=== PATIENT | female | born 1960 | race Caucasian/White ===

== ENCOUNTER 2018-06-22 17:42 | Inpatient (IN) | payer MEDICAID ==
[~2018-06-22] VITALS: Ht 152.4 cm; Wt 72.6 kg
--- NOTE | ~2018-06-22 | HEMODYNAMI ---
PATIENT:HETAL DASH MEDICAL RECORD: [id number] : 56 LOCATION:[place] [address] ADMISSION DATE: 06/22/18 Generatedon:06/23/201811:07 Patient name: HETAL DASH Patient #: [id number] SSN: : Date of study: 06/23/2018 Page: Of Hemodynamic Procedure Report Patient Data Patient Demographics Procedure consent was obtained First Name: HETAL Gender: Female Last Name: EKTA : 1960 Patient #: [id number] Age: 57 year(s) Race: Unknown Additional ID: [id number] Contact details Address: [place] [address] State: [place] City: [place] Zip code: [address] Past Medical History Allergies: No known allergies Admission Admission Data Admission Date: 06/22/2018 Admission Time: 19:19 Room #: [facility] Procedure Procedure Types Cath Procedure Diagnostic Procedure LHC LHC w/Coronaries w/Grafts Temporary Pacemaker Procedure Description Procedure Date Procedure Date: 06/23/2018 Procedure Start Time: 10:49 Procedure End Time: 11:06 Procedure Staff Name Function Jose Mccormick MD Performing Physician Dorys Laura RT Monitor Prieto Lundberg RT Scrub Dorie Valera RN Nurse Procedure Data Cath Procedure Fluoroscopy Diagnostic fluoroscopy Total fluoroscopy Time: 3.7 time: 3.7 min min Diagnostic fluoroscopy Total fluoroscopy dose: 207 dose: 207 mGy mGy Contrast Material Contrast Material Type Amount (ml) Isovue 300 57 Entry Location Entry Primary Successful Side Size Upsize Upsize Entry Closure Succes sful Closure Location (Fr) 1 (Fr) 2 (Fr) Remarks Device Remarks Femoral Left 6 Fr vein Short Femoral Left 5 Fr Exoseal artery Estimated blood loss: 10 ml Diagnostic catheters Device Type Used For End Catheter Placement MULTIPACK Pigtail 5 Fr Procedure catheter MULTIPACK JL 4.0 5Fr Procedure catheter MULTIPACK 3DRC 5Fr Procedure catheter DIAGNOSTIC AR2 MOD 5 Fr Procedure catheter ([id number]) Procedure Complications No complications Procedure Medications Medication Administration Route Dosage 0.9% NaCl I.V. 100 ml/hr Oxygen etCO2 Nasal cannula 2 l/min Lidocaine 2% added to field 20 Heparin Flush Bag added to field 2 bags (1000units/500ml NS) Versed I.V. 0.5 mg Fentanyl I.V. 25 mcg Hemodynamics Rest Heart Rate: 46 (bpm) Snapshots Pre Cath Intra NCS Post Cath Vital Signs Time Heart Resp SPO2 etCO2 NIBP Rhythm Pain Sedation Rate (ipm) (%) (mmHg) (mmHg) Status Level (bpm) 10:38:01 45 18 96 24.3 111/52(77) NSR 0 (11) 10(A) , No pain 10:42:25 47 16 97 25.7 78/35(44) NSR 0 (11) 10(A) , No pain 10:46:33 43 13 96 23.5 89/44(81) NSR 0 (11) 10(A) , No pain 10:51:57 74 12 97 19.7 110/53(96) NSR 0 (11) 10(A) , No pain 10:56:15 58 10 97 24.7 115/48(78) NSR 0 (11) 9(A) , No pain 11:00:31 70 13 98 22.7 123/64(96) NSR 0 (11) 10(A) , No pain 11:04:47 70 11 99 25 124/63(83) NSR 0 (11) 10(A) , No pain Medications Time Medication Route Dose Verified Delivered Reason Notes Eff ectiveness by by 10:37:15 0.9% NaCl I.V. 100 Jose Dorie used for ml/hr Anny Valera equipment cleaner 10:37:22 Oxygen etCO2 2 Jose Dorie used for Nasal l/min Anny Valera procedure cannula RN 10:37:27 Lidocaine 2% added 20ml Jose Garcia for local to vial Anny Mccormick MD anesthetic field 10:37:31 Heparin Flush added 2 Jose Jose used for Bag to bags Anny Mccormick MD procedure (1000units/500ml field NS) 10:52:06 Versed I.V. 0.5 Jose Dorie for mg Anny Valera sedation RN 10:52:12 Fentanyl I.V. 25 [place]ie [place] [facility] [place]ny Valera sedation hoisting engineer pile driving Log Time Note 10:10:30 Signed procedure consent form obtained from patient. 10:10:31 Diagnostic Cath status Elective 10:10:32 Time tracking: Regular hours (M-F 7:00 - 5:00) 10:10:36 Plan of Care:Hemodynamics will remain stable., Cardiac rhythm will remain stable., Comfort level will be maintained., Respiratory function will remain adequate., Patient/ family verbilizes understanding of procedure., Procedure tolerated without complication., Recovers from procedure without complications.. 10:13:14 Dorie Valera RN sent for patient. Start room use. 10:25:28 Patient received from ICU to CCL 1 Alert and oriented. Tansferred to table in Supine position. 10:25:37 Warm blankets applied, and leatha hugger turned on for patient comfort. 10:25:38 Correct patient and procedure confirmed by team. 10:25:39 ECG and BP/O2 sat monitors applied to patient. 10:36:50 Vital chart was started 10:37:15 0.9% NaCl 100 ml/hr I.V. was administered by Dorie Valera RN; used for procedure; 10:37:22 Oxygen 2 l/min etCO2 Nasal cannula was administered by Dorie Valera RN; used for procedure; 10:37:27 Lidocaine 2% 20ml vial added to field was administered by Jose Mccormick MD; for local anesthetic; 10:37:31 Heparin Flush Bag (1000units/500ml NS) 2 bags added to field was administered by Jose Mccormick MD; used for procedure; 10:39:33 Use device set Femoral Dx 10:39:35 ACIST Syringe (27540) opened to sterile field. 10:39:35 Bag Decanter (2002) opened to sterile field. 10:39:36 Medline Cath Pack ([id number]) opened to sterile field. 10:39:37 DIAGNOSTIC WIRE .035 260cm J wire (377233) opened to sterile field. 10:39:41 ACIST Hand Control (29643) opened to sterile field. 10:39:42 ACIST Manifold (47440) opened to sterile field. 10:39:44 DIAGNOSTIC Multipack 5Fr catheter set (AS1968) opened to sterile field. 10:39:45 Tegaderm 4 x 4 (1626W) opened to sterile field. 10:40:00 SHEATH 5FR Saint [place] (LNG221) opened to sterile field. 10:40:16 SHEATH 6FR [place] (ITH778) opened to sterile field. 10:40:41 Baseline sample Acquired. 10:40:57 Rhythm: 2nd degree heart block 10:40:59 Full Disclosure recording started 10:41:25 H&P Date Dictated: 06/22/2018 Within 30 days and on chart.. 10:41:27 Pre-procedure instructions explained to patient. 10:41:29 Pre-op teaching completed and patient verbalized understanding. 10:41:38 Family in waiting room. 10:42:40 5Fr J Tip Temporary Pacing Catheter ([id number]) opened to sterile field. 10:42:48 2-0 Silk 685H opened to sterile field. 10:42:49 Pt arrived to with Dobutamine 10mcg/kg/min continuous infusion upon arrival. Verbal order received from Dr. Mccormick to d/c Dobutamine drip now. 10:45:39 Patient allergic to No known allergies 10:45:42 Is patient on blood thinner?No 10:45:43 Patient diabetic? Yes. 10:45:51 INSULIN DEPENDENT 10:45:55 Previous problem with sedation/anesthesia? No ? 10:45:57 Snore? No 10:45:58 Sleep apnea? No 10:45:58 Deviated septum? No 10:45:59 Opens mouth fully? Yes 10:46:00 Sticks out tongue? Yes 10:46:06 Airway obstruction? Yes ASTHMA 10:46:08 Dentures? No ? 10:46:12 Pre procedure: left dorsailis pedis pulse 1+ Palpable, but thready & weak; easily obliterated 10:46:15 Patient pain scale 0/10 ?. 10:46:21 IV patent on arrival in right antecubital with 0.9% NaCl at O. 10:46:23 Lab results completed and on chart. 10:46:27 Left groin area was prepped with chlora-prep and draped in sterile fashion 10:46:28 Alarms reviewed by R. N. 10:46:28 Sharps counted by scrub and verified by R.N. 10:46:29 --------ALL STOP TIME OUT------ 10:46:29 Final Timeout: patient, procedure, and site verified with staff and physician. All members of the team are in agreement. 10:46:31 Left groin site verified by team. 10:46:34 Physical assessment completed. ASA score P 3 - A patient with severe systemic disease as per Jose Mccormick MD. 10:46:37 Sedation plan: IV Moderate Sedation Medication:Versed, Fentanyl 10:48:55 Zero performed for pressure channel P1 10:49:26 Procedure started. 10:49:35 Local anesthetic to left femerol artery with Lidocaine 2% by Jose Mccormick MD.INITIAL ACCESS ONLY 10:49:58 A 6 Fr Short sheath was inserted into the Left Femoral vein 10:50:14 Temporary pacer inserted 10:51:48 Temporary pacer turned on with the following settings: Rate 70, MA 5, Mode: Demand. 10:52:06 Versed 0.5 mg I.V. was administered by Dorie Valera RN; for sedation; 10:52:12 Fentanyl 25 mcg I.V. was administered by Dorie Valera RN; for sedation; 10:52:38 A 5 Fr sheath was inserted into the Left Femoral artery 10:52:56 A MULTIPACK Pigtail 5 Fr catheter was advanced over the wire and used for Procedure. 10:53:06 LV gram done using CR 10:53:10 Injector settings: Ml/sec: 10, Volume: 20, 10:53:34 EF : 50 % 10:53:36 Catheter removed. 10:53:54 A MULTIPACK JL 4.0 5Fr catheter was advanced over the wire and used for Procedure. 10:54:26 LCA angiography performed. 10:54:29 Catheter removed. 10:54:47 A MULTIPACK 3DRC 5Fr catheter was advanced over the wire and used for Procedure. 10:56:03 BUSTILLO to LAD angiography performed. 10:56:34 RCA angiography performed. 10:56:39 Catheter removed. 10:56:51 A DIAGNOSTIC AR2 MOD 5 Fr catheter ([id number]) was advanced over the wire and used for Procedure. 10:57:51 SVG to RCA angiography performed. 10:58:11 Catheter removed. 10:58:18 EXOSEAL 5Fr (EX500) opened to sterile field. 10:58:29 Sheath removed intact; hemostasis achieved with Exoseal to the Left Femoral artery. 11:00:02 Procedure ended.(Physican Out) 11:01:33 FEMORAL VEIN SHEATH SUTURED IN WITH TEMPORARY PACE MAKER 11:01:43 Fluoroscopy time 03.70 minutes. 11:01:46 Fluoroscopy dose: 207 mGy 11:01:46 Flurop Dose total: 207 11:01:49 Contrast amount:Isovue 300 57ml. 11:01:50 Sharps counted by scrub and verified by R.N. 11:01:55 Post-op/insertion site Left Femoral vein dressed using a 4 x 4 and Tegaderm. 11:02:00 Post-procedure physical assessment completed. ASA score P 2 - A patient with mild systemic disease as per Jose Mccormick MD. 11:02:05 Post procedure rhythm: sinus rhythm , paced 11:02:07 Estimated blood loss: 10 ml 11:02:08 Post procedure instruction explained to patient.Patient verbalizes understanding. 11:02:25 Procedure type changed to Cath procedure, Diagnostic procedure, LHC, LHC w/Coronaries w/Grafts, Temporary Pacemaker 11:04:48 Procedure and supply charges have been captured, reviewed, submitted and are correct. 11:04:50 Procedure Complication : No complications 11:06:47 Vital chart was stopped 11:06:47 See physician's report for complete and final results. 11:06:49 Report given to ICU. 11:06:52 Patient transfered to ICU with Bed. 11:06:57 Procedure ended. 11:06:57 Full Disclosure recording stopped 11:07:00 End room use (Document Last) 11:07:00 End room use (Document Last) Device Usage Item Name Manufacture Quantity Catalog Hospital Part Current Minimal L ot# / Number Charge Number Stock Stock Serial# Code ACIST Acist 1 13214 [id number] 229936 416831 20 Syringe Medical (77992) Systems Inc Bag Microtek 1 352360 21643 119361 5 Decanter Medical Inc. () Medline Medline 1 [id number] 765332 00524 895434 5 Cath Pack ([id number]) DIAGNOSTIC St Flash 1 612053 295504 099069 168573 30 WIRE .035 260cm J wire (214357) ACIST Hand Acist 1 05996 478418 738864 701274 5 Control Medical (66067) Systems Inc ACIST Acist 1 16545 302892 109357 270799 5 Manifold Medical (03542) Systems Inc DIAGNOSTIC Cardinal 1 BR5149 513792 50232 229922 30 Multipack Health 5Fr catheter set (TU8052) Tegaderm 4 3M 1 1626W 162365 553881 742741 5 x 4 (1626W) SHEATH 5FR Terumo 1 FAC342 743085 060016 128077 5 Saint George (FRN626) SHEATH 6FR Terumo 1 TYE789 467434 287380 967599 40 [place] George (FOF018) 5Fr J Tip Stephens 1 [id number] 761453 67457 247300 2 Temporary Lifesciences Pacing Catheter ([id number]) 2-0 Silk Ethicon 1 685H 543809 35423 370151 5 685H MULTIPACK Cardinal 1 149445 5 Pigtail 5 Health Fr catheter MULTIPACK Cardinal 1 927616 5 JL 4.0 5Fr Health catheter MULTIPACK Cardinal 1 376211 5 3DRC 5Fr Health catheter DIAGNOSTIC Cardinal 1 [id number] 735984 577353 524869 20 AR2 MOD 5 Health Fr catheter (723335J) EXOSEAL 5Fr Cardinal 1 EX500 298042 501747 271717 10 (EX500) Health Signature Audit [place] Stage Time Signature Unsigned Intra-Procedure 06/23/2018 Dorys Laura 11:07:22 AM RT(R) Signatures Monitor : Dorys Laura Signature : RT Date : Time : [place] [address] [place] [address]
--- NOTE | ~2018-06-22 | HEMODYNAMI ---
PATIENT:HETAL DASH MEDICAL RECORD: [id number] : 56 LOCATION:[place] [address] ADMISSION DATE: 06/22/18 Generatedon:06/24/201810:54 Patient name: HETAL DASH Patient #: [id number] SSN: : Date of study: 06/24/2018 Page: Of Hemodynamic Procedure Report Patient Data Patient Demographics Procedure consent was obtained First Name: HETAL Gender: Female Last Name: EKTA : 1960 Patient #: [id number] Age: 57 year(s) Race: Unknown Additional ID: [id number] Contact details Address: [place] [address] State: [place] City: [place] Zip code: [address] Past Medical History Allergies: No known allergies Admission Admission Data Admission Date: 06/22/2018 Admission Time: 19:19 Room #: [facility] Procedure Procedure Types Cath Procedure Diagnostic Procedure PPM/ICD PPM Dual Implant Procedure Description Procedure Date Procedure Date: 06/24/2018 Procedure Start Time: 9:21 Procedure End Time: 10:42 Procedure Staff Name Function Jose Mccormick MD Performing Physician Dennys Abel MD Assisting physician Zaid Caro RN Nurse Ciera Simmons RT Scrub Bert Hercules RT Monitor Brad Ahn Additional personnel Procedure Data Cath Procedure Fluoroscopy Diagnostic fluoroscopy Total fluoroscopy Time: time: 10.9 min 10.9 min Diagnostic fluoroscopy Total fluoroscopy dose: dose: 216.35 mGy 216.35 mGy Procedure Complications No complications Procedure Medications Medication Administration Route Dosage Oxygen 8 l/min Lidocaine 1% added to field 20 Ancef (1Gm/50ml NS) I.V.P.B 2 g Ancef Irrigation Topical 1 g (1gm/500ml NS) Refer to Anesthesia Notes for Sedation Medications Hemodynamics Rest Heart Rate: 58 (bpm) Snapshots Pre Cath Intra NCS Post Cath Vital Signs Time Heart Resp SPO2 etCO2 NIBP (mmHg) Rhythm Pain Sedation Rate (ipm) (%) (mmHg) Status Level (bpm) 9:00:04 70 14 97 0 177/82(129) NSR 0 (11) 10(A) , No pain 9:04:44 70 13 98 0 166/79(127) NSR 0 (11) 10(A) , No pain 9:09:29 70 11 100 0 162/77(123) NSR 0 (11) 10(A) , No pain 9:14:09 70 17 95 0 153/77(124) NSR 0 (11) 10(A) , No pain 9:18:48 70 16 95 0 135/44(98) NSR 0 (11) 10(A) , No pain 9:23:06 70 31 93 0 131/72(106) NSR 0 (11) 9(A) , No pain 9:27:38 49 36 89 0 122/55(92) NSR 0 (11) 9(A) , No pain 9:33:43 85 13 90 0 113/55(84) NSR 0 () 9(A) , No pain 9:38:01 49 28 92 0 95/59(83) NSR 0 () 9(A) , No pain 9:42:17 49 19 91 0 77/60(73) NSR 0 (11) 9(A) , No pain 9:47:41 49 27 92 0 94/45(75) NSR 0 () 9(A) , No pain 9:52:58 53 22 90 0 133/60(95) NSR 0 (11) 9(A) , No pain 9:57:20 99 38 92 0 117/74(91) NSR 0 () 9(A) , No pain 10:01:46 49 25 91 0 119/55(83) NSR 0 (11) 9(A) , No pain 10:06:13 49 23 91 0 117/46(88) NSR 0 (11) 9(A) , No pain 10:10:35 80 22 92 0 111/58(80) NSR 0 (11) 9(A) , No pain 10:14:53 104 30 92 0 122/69(91) NSR 0 (11) 9(A) , No pain 10:19:17 103 15 93 0 126/63(86) NSR 0 (11) 9(A) , No pain 10:23:29 102 16 93 0 80/66(72) NSR 0 (11) 9(A) , No pain 10:34:08 84 17 96 0 147/57(100) NSR 0 (11) 10(A) , No pain 10:38:38 93 25 0 144/70(105) NSR 0 (11) 10(A) , No pain 10:43:11 91 17 0 147/73(106) NSR 0 (11) 10(A) , No pain Medications Time Medication Route Dose Verified Delivered Reason Notes Effec tiveness by by 9:02:06 Oxygen simple 8 Dennys Zaid used for per mask l/min Poonam Caro RN procedure anesthesia 9:08:56 Ancef I.V.P.B 2 g Dennys Mar Per (1Gm/50ml Poonam Caro RN physician NS) 9:14:46 Lidocaine added 20ml Dennys Noyola for local 1% to vial Poonam Abel MD anesthetic field 9:15:14 Ancef Topical 1 g Dennys Mar used for Irrigation Poonam Caro RN procedure (1gm/500ml NS) 9:15:22 Refer to Dennyssonia Venegasie Nixon Anesthesia Poonam Caro RN Olivares Notes for Sedation Medications Procedure Log Time Note 8:20:10 Diagnostic Cath Status : Elective 8:20:46 Bert Hercules RT(R) sent for patient. Start room use. 8:20:48 Time tracking: Regular hours (M-F 7:00 - 5:00) 8:20:51 Plan of Care:Hemodynamics will remain stable., Cardiac rhythm will remain stable., Comfort level will be maintained., Respiratory function will remain adequate., Patient/ family verbilizes understanding of procedure., Procedure tolerated without complication., Recovers from procedure without complications.. 8:34:10 Cautery Tip Training Intern opened to sterile field. 8:34:12 Cautery Pushbutton Pencil opened to sterile field. 8:34:13 Mepilex Dressing (210637) opened to sterile field. 8:34:15 Immobilizer Sling Medium opened to sterile field. 8:35:02 Medtronic Advisa MRI PPM Dual Generator A2DR01 opened to sterile field. 8:35:03 Medtronic 5076-45 PPM Lead opened to sterile field. 8:35:03 Medtronic 5076-52 PPM Lead opened to sterile field. 8:35:57 Medtronic financial representative Tera Manzanares present for procedure. 8:58:24 Patient received from ICU to CCL 3 Alert and oriented. Tansferred to table in Supine position. 8:58:25 Warm blankets applied, and leatha hugger turned on for patient comfort. 8:58:25 Correct patient and procedure confirmed by team. 8:58:26 Signed procedure consent form obtained from patient. 8:58:27 ECG and BP/O2 sat monitors applied to patient. 8:58:28 Vital chart was started 8:58:30 Baseline sample Acquired. 9:01:21 Rhythm: sinus rhythm 9:01:23 Full Disclosure recording started 9:01:28 H&P Date Dictated: 06/24/2018 Within 30 days and on chart.. 9:01:29 Pre-procedure instructions explained to patient. 9:01:30 Pre-op teaching completed and patient verbalized understanding. 9:01:36 Family in waiting room. 9:01:38 Patient NPO since Midnight. 9:01:43 Patient allergic to No known allergies 9:01:46 Is the patient allergic to Iodine/contrast media? No. 9:01:50 Was the patient premedicated? No 9:02:06 Oxygen 8 l/min simple mask was administered by Zaid Caro RN; used for procedure; per anesthesia 9:03:34 Is patient on blood thinner?No 9:03:36 Patient diabetic? Yes. 9:03:38 If diabetic: On Metformin? No 9:03:39 ----Pre-sedation anethsthesia assessment.---- 9:03:41 Previous problem with sedation/anesthesia? No ? 9:03:43 Snore? No 9:03:44 Sleep apnea? No 9:03:46 Deviated septum? No 9:03:47 Opens mouth fully? Yes 9:03:48 Sticks out tongue? Yes 9:03:54 Airway obstruction? Yes ASTHMA' 9:03:59 Dentures? No ? 9:04:02 Pre procedure: right dorsailis pedis pulse 1+ Palpable, but thready & weak; easily obliterated 9:04:07 Patient pain scale 0/10 ?. 9:04:49 IV patent on arrival in right antecubital with 0.9% NaCl at 10ml/hr. 9::56 Lab results completed and on chart. 9:05:06 Left chest area was prepped with chlora-prep and draped in sterile fashion 9:05:08 Alarms reviewed by R. N. 9:05:08 Sharps counted by scrub and verified by R.N. 9::56 Ancef (1Gm/50ml NS) 2 g I.V.P.B was administered by Zaid Caro RN; Per physician; 9::29 Grounding pad site free from injury. 9::32 Grounding pad site Left thigh. 9::56 Physician paged 9::57 Physician arrived 9:14:46 Lidocaine 1% 20ml vial added to field was administered by Dennys Abel MD; for local anesthetic; 9:15: Ancef Irrigation (1gm/500ml NS) 1 g Topical was administered by Zaid Caro RN; used for procedure; 9:15:22 Refer to Anesthesia Notes for Sedation Medications was administered by Zaid Caro RN; ; Nixon Olivares 9::57 --------ALL STOP TIME OUT------ 9:17:58 Final Timeout: patient, procedure, and site verified with staff and physician. All members of the team are in agreement. 9:18:00 Left chest site verified by team. 9:18:04 Physical assessment completed. ASA score P 4 - A patient with severe systemic disease that is a constant threat to life as per Dennys Abel MD. 9:18:07 Physical assessment completed. ASA score P 2 - A patient with mild systemic disease as per Dennys Abel MD. 9:18:13 Sedation plan: TIVA Medication:Propofol 9:19:33 2-0 Vicryl Plus AQE725 opened to sterile field. 9:19:34 3-0 Vicryl Multipack [id number] opened to sterile field. 9:19:34 4-0 Monocryl Y426 opened to sterile field. 9:19:35 4-0 Monocryl Y426 opened to sterile field. 9:20:23 Procedure started. 9:21:37 Lidocaine 1% w/epi was administered to left subclavicular area by Dennys Abel MD . 9:28:39 Incision made to left subclavicular area. 9:29:00 PEELAWAY 7FR Safe Sheath (SU7) opened to sterile field. 9:29:07 Generator pocket made/opened. 9:33:02 TEMP PACER TAKEN TO 40BPM PER POONAM 9:37:57 Access obtained with 9Fr micropunture. 9:39:46 PEELAWAY 9FR Safe Sheath (SU9) opened to sterile field. 9:40:20 Left subclavian vein accessed with 9Fr Peel Away Sheath. 9:41:32 Ventricular lead inserted and advanced. 9:46:14 Atrial lead inserted and advanced. 9:54:12 Ventricular lead positioned. 10:02:11 Atrial lead positioned. 10:02:15 Ventricular lead tested. 10:02:19 Atrial lead tested. 10:10:18 TEMP PACER REMOVED FROM THE HEART AND TURNED OFF. SHEATH WILL REMAIN IN LFV 10:13:18 Peel-a-way sheath was split and removed. 10:13:55 Ventricular lead attachment was completed with 2-0 vicryl. 10:14:01 Atrial lead attachment was completed with 2-0 vicryl. 10:14:09 PPM Dual was attached to lead(s) and inserted into pocket. 10:14:28 Generator was sutured in place with 3-0 vicryl. 10:14:40 Device pocket was irrigated with Ancef. 10:16:39 Parameters-- Generator: Mode: BIPOLAR. Lower Rate: 60bpm. Upper Rate: 120bpm. 10:17:13 Parameters--Ventricular P/R Wave: 8.7mV. Current: 0.4mA; Threshold: 1.4V; Impedence: 1543OHMS. 10:17:36 Parameters--Atrial P/R Wave: 1.2mV. Current: 0.4mA; Threshold: 1.1V; Impedence: 564OHMS. 10:18:03 Subcutaneous closure was completed with 3-0 vicryl plus. 10:22:33 Skin closure was completed with 5-0 monocryl. 10:26:34 Mepilex Dressing (770060) opened to sterile field. 10:38:11 SHEATH SUTURED BACK TO LFV 10:38:23 Procedure ended.(Physican Out) 10:38:55 Fluoroscopy time 10.90 minutes. 10:39:02 Flurop Dose total: 216.35 10:39:02 Fluoroscopy dose: 216.35 mGy 10:39:04 Sharps counted by scrub and verified by R.N. 10:39:05 Insertion/operative site no bleeding no hematoma. 10:39:12 Post-op/insertion site Left Chest area dressed using a Mepilex dressing. 10:39:31 Post Chest area:stable 10:41:48 Post procedure rhythm: paced 10:41:50 Post procedure instruction explained to patient.Patient verbalizes understanding. 10:41:53 Procedure and supply charges have been captured, reviewed, submitted and are correct. 10:42:18 Procedure Complication : No complications 10:42:22 Vital chart was stopped 10:42:23 See physician's report for complete and final results. 10:42:30 Report given to ICU. 10:42:45 Patient transfered to ICU with Bed. 10:42:49 Procedure ended. 10:42:49 Full Disclosure recording stopped 10:42:51 End room use (Document Last) Device Usage Item Name Manufacture Quantity Catalog Hospital Part Current Minimal Lo t# / Number Charge Number Stock Stock Serial# Code Cautery Tip Microtek 1 [id number] 737204 860082 414095 5 Training [employer]oghs Inc. Cautery Microtek 1 [id number] 975038 88846 801911 5 Pushbutton Medical Inc. Pencil Mepilex Cardinal 2 996147 296122 017054 471919 5 [facility] Health (212932) Immobilizer Cardinal 1 08-33125 265891 785040 785429 5 [facility] Health Medium Medtronic Medtronic 1 A2DR01 444077 895535 5 PV [id number] Advisa MRI EX P: 10/20/20 PPM Dual Generator A2DR01 Medtronic Medtronic 1 5076-45 223031 144140 5 PJ [id number] 5076-45 PPM EX P:02/23/20 Lead Medtronic Medtronic 1 5076-52 055644 560607 5 PJ [id number] 5076-52 PPM EX P: 20 Lead 2-0 Vicryl Ethicon 1 PEI401 583180 738760 290763 5 Plus ANR494 3-0 Vicryl Ethicon 1 [id number] 255865 437209 993322 5 Multipack [id number] 4-0 Ethicon 2 Y426 755301 106977 5 Monocryl Y426 PEELAWAY Microtek 1 SU7 413795 200252 295302 10 7FR Safe Medical Inc. Sheath (SU7) PEELAWAY Microtek 1 SU9 594179 426788 994767 5 9FR Safe Medical Inc. Sheath (SU9) Signature Audit [place] Stage Time Signature Unsigned Intra-Procedure 06/24/2018 Bert MARINO(Mila) 10:54:09 AM Signatures Monitor : Bert Hercules RT Signature : Date : Time : [address] [address]
[2018-06-22] MEDS ORDERED: BAYER CHEWABLE81 MG PO (17:55)
[2018-06-22] MEDS ORDERED: LOPRESSOR25 MG PO (17:55)
[2018-06-22] MEDS ORDERED: FENOFIBRATE54 MG PO (17:55)
[2018-06-22] MEDS ORDERED: CLARITIN 10 MG10 MG PO (17:55)
[2018-06-22] MEDS ORDERED: GLIMEPIRIDE4 MG PO (17:55)
[2018-06-22] MEDS ORDERED: LEVEMIR IN100 UNITS/ SC (17:56)
[2018-06-22] MEDS ORDERED: ZANAFLEX4 MG PO (17:56)
[2018-06-22] MEDS ORDERED: FUROSEMIDE20 MG PO (17:57)
[2018-06-22 19:03] VITALS: BP 173/60
[2018-06-22 20:22] VITALS: BP 93/67
[2018-06-22 20:28] LABS: BASOPHILS 0.3 % (0-2); EOSINOPHILS 4.7 % (0-7); HEMATOCRIT 40.7 % (36.0-48.0); HEMOGLOBIN 12.7 g/dL (12-16); LYMPHOCYTES 29.9 % (15-50); MCH 29.7 pg (26.0-34.0); MCHC 31.2 g/dL (31.0-37.0); MCV 95.1 fL (80.0-100.0); MEAN PLATELET VOLUME 10.1 fL (7.4-10.4); MONOCYTES 6.7 % (2-11); NEUTROPHILS 58.4 % (40-80); PLATELET COUNT 239 10x3/uL (130-400); RBC 4.28 10x6/uL (4.00-5.40); RDW 15.4 % (11.5-14.5)
[2018-06-22 20:31] VITALS: BP 133/74
[2018-06-22 20:45] LABS: ALBUMIN 3.2 g/dL (3.4-5.0); ALKALINE PHOSPHATASE 49 U/L (46-116); ALT (SGPT) 36 U/L (10-68); CALC OSMOLALITY 295 mosm/kg (275-300); CALCIUM 9.3 mg/dL (8.5-10.1); CARBON DIOXIDE 26.5 mmol/L (21.0-32.0); CHLORIDE - SERUM 110 mmol/L (98-107); CREATININE - SERUM 1.3 mg/dL (0.6-1.3); GLUCOSE 88 mg/dL (74-106); POTASSIUM - SERUM 4.8 mmol/L (3.5-5.1); PROTEIN - SERUM 6.6 g/dL (6.4-8.2); SODIUM 146 mmol/L (136-145); UREA NITROGEN 30 mg/dL (7-18); eGFR NON AFRICAN AMERICAN 44 mL/min (90-120)
[2018-06-22 20:48] LABS: INR 1.06 (0.85-1.17); PROTIME 13.3 SECONDS (11.6-15.0)
[2018-06-22 20:57] LABS: CKMB 6.4 U/L (0.0-3.6); CREATINE KINASE 111 UL (21-215); MAGNESIUM - SERUM 2.6 mg/dL (1.8-2.4); TROPONIN-I 0.033 ng/mL (0.000-0.060)
[2018-06-22 21:30] VITALS: BP 133/74
[2018-06-22 22:20] LABS: APPEARANCE CLEAR (CLEAR); COLOR YELLOW (YELLOW); GLUCOSE NEGATIVE (NEGATIVE); KETONE NEGATIVE (NEGATIVE); NITRITE NEGATIVE (NEGATIVE); PROTEIN NEGATIVE (NEGATIVE)
[2018-06-22 22:21] LABS: BILIRUBIN NEGATIVE (NEGATIVE); UROBILINOGEN NORMAL (NORMAL)
[2018-06-22 22:24] LABS: UDS - AMPHET NEGATIVE QUAL (NEGATIVE); UDS - BARB NEGATIVE QUAL (NEGATIVE); UDS - BENZO NEGATIVE QUAL (NEGATIVE); UDS - COCAINE NEGATIVE QUAL (NEGATIVE); UDS - OPIATE NEGATIVE QUAL (NEGATIVE); UDS - PCP NEGATIVE QUAL (NEGATIVE); UDS - THC NEGATIVE QUAL (NEGATIVE)
[2018-06-22 22:31] VITALS: BP 173/55
[2018-06-22 23:00] VITALS: BP 152/61
--- NOTE | 2018-06-22 23:17 | NUR ---
ICU ADVISED THAT THE BED THE PATIENT WAS GOING TO COME TO WAS FILLED BY AN EMERGENCY PATIENT ON THE FLOOR AND THEY WOULD BE GETTING ANOTHER BED FOR THE PATIENT.
[2018-06-22 23:18] LABS: T4 THYROXIN - FREE 1.33 ng/dL (0.76-1.46); THYROID STIMULATING HORMONE 2.66 uIU/mL (0.36-3.74)
[2018-06-23] VITALS (29 sets, daily range): BP systolic 58–167; BP diastolic 11–96; Ht 152.4 cm; Wt 72.6 kg
--- NOTE | 2018-06-23 00:05 | NUR ---
PT RECIEVED FROM ED VIA STRETCHER. TRANSFERRED TO ICU BED 2312. MONITOR EQUIP ESTABLISHED. HR IN THE MID 30'S. 3RD DEGREE HEART BLOCK PER CM. PT IS VERY CONFUSED AND LETHARGIC. AT BEDSIDE AND ABLE TO ANSWER QUESTIONS FOR ADMISSION. HE STATES THAT HIS HAS HAD A HR IN THE 30'S SINCE BEFORE SAMANTHA BUT SHE BECAME VERY CONFUSED YESTERDAY AND THAT WAS WHY SHE WAS TAKEN TO THE ER.
--- NOTE | 2018-06-23 02:00 | NUR ---
PT HAS BECAME MORE LETHARGIC AND IS BECOMING CYANOTIC. PT WAS HYPERTENSIVE BUT IS NOW HYPOTENSIVE. REMAINS IN 3RD DEGREE HEART BLOCK. TRANSCUTANEUS PACING STARTED AT 60/MIN. PT IMMEDIATELY STARTING TO IMPROVE SKIN COLOR AND MENTATION. MONITORING CLOSELY. IS GOING TO WAITING ROOM.
[2018-06-23 03:25] LABS: BASOPHILS 0.2 % (0-2); EOSINOPHILS 4.3 % (0-7); HEMATOCRIT 39.9 % (36.0-48.0); HEMOGLOBIN 12.5 g/dL (12-16); IMMATURE GRANULOCYTES 0.2 % (0-5); LYMPHOCYTES 29.8 % (15-50); MCH 29.8 pg (26.0-34.0); MCHC 31.3 g/dL (31.0-37.0); MCV 95.2 fL (80.0-100.0); MEAN PLATELET VOLUME 9.8 fL (7.4-10.4); MONOCYTES 5.7 % (2-11); NEUTROPHILS 59.8 % (40-80); PLATELET COUNT 248 10x3/uL (130-400); RBC 4.19 10x6/uL (4.00-5.40); RDW 15.3 % (11.5-14.5)
[2018-06-23 03:46] LABS: ALBUMIN 3.1 g/dL (3.4-5.0); ALKALINE PHOSPHATASE 42 U/L (46-116); ALT (SGPT) 44 U/L (10-68); BILIRUBIN - TOTAL 0.51 mg/dL (0.2-1.3); CALC OSMOLALITY 297 mosm/kg (275-300); CALCIUM 8.9 mg/dL (8.5-10.1); CARBON DIOXIDE 31.4 mmol/L (21.0-32.0); CHLORIDE - SERUM 112 mmol/L (98-107); CKMB 6.1 U/L (0.0-3.6); CREATINE KINASE 145 UL (21-215); CREATININE - SERUM 1.3 mg/dL (0.6-1.3); GLUCOSE 117 mg/dL (74-106); PROTEIN - SERUM 6.3 g/dL (6.4-8.2); SODIUM 147 mmol/L (136-145); TROPONIN-I 0.036 ng/mL (0.000-0.060); UREA NITROGEN 27 mg/dL (7-18); eGFR NON AFRICAN AMERICAN 44 mL/min (90-120)
--- NOTE | 2018-06-23 04:00 | NUR ---
PT IS TOLERATING PACING WELL. BP HAS STABILIZED. SHE IS MORE ALERT WHEN AWAKENED AND IS ABLE TO COMMUNICATE MORE EFFECTIVELY.
--- NOTE | 2018-06-23 06:00 | NUR ---
DR SENIOR GIVEN AN UPDATE ON PT CONDITION. NEW ORDER RECIEVED TO START DOBUTREX AT 10MCG/KG/MIN AND RUN IT FOR 15 MIN AND THEN TURN PM OFF.
--- NOTE | 2018-06-23 07:00 | NUR ---
DOBUTAMINE INFUSING AT 10MCG/KG/MIN. PM IS OFF. PT IS IN 3RD DEGREE BLOCK PER CM. BP STABLE AT THIS TIME.
[2018-06-23 09:13] LABS: CKMB 5.3 U/L (0.0-3.6); CREATINE KINASE 80 UL (21-215); TROPONIN-I 0.034 ng/mL (0.000-0.060)
--- NOTE | 2018-06-23 11:22 | NUR ---
0800 REPORT RECIEVED AND ASSESMENT IS COMPLETE SEE FLOW SHEET FOR FINDINGS.. IS AT THE BEDSIDE.. PT IV FLUID IS DOBUTREX AT 10 MCG TRMPORARY EXTERNAL PACEMAKER IS TURNED OFF AT THIS TIME STILL ATTACHED TO THE PATIENT.. HR IS 47 PT IS APPROPRIATE IN RESPONSES BUT SEEMS SLUGGISH AND SLOW.. STATES SHE HAS MUSCULAR DYSTROPHY... 0900 DR SENIOR CALLED AND UPDATE IS GIVEN..
--- NOTE | 2018-06-23 13:29 | OP ---
PATIENT NAME: HETAL DASH MEDICAL RECORD: [id number] :56 LOCATION:.[facility] D.2312 ADMISSION DATE:06/22/18 SURGEON: SAURAV SENIOR MD DATE OF OPERATION: 06/23/2018 DATE OF SERVICE: 06/23/2018 PROCEDURES: 1. Temporary pacemaker placement. 2. Left heart catheterization. 3. Selective coronary angiography. 4. Vein graft angiography. 5. BUSTILLO angiography. 6. Left ventriculogram. INDICATION: Third-degree heart block, bradycardia, coronary artery disease, previous coronary artery bypass graft surgery. DESCRIPTION OF PROCEDURE: After informed consent was obtained and after a detailed description of risks, benefits as well as alternative therapies, the patient elected to proceed with angiogram and heart catheterization. The left femoral area was prepped and draped in normal sterile fashion. Left femoral artery was cannulated via modified Seldinger technique with placement of 5-Montenegrin sheath. Left femoral vein cannulated via modified Seldinger technique with placement of 6-Montenegrin sheath. Temporary pacemaker was advanced into the RV apex. Pacing was undertaken. FINDINGS: Left ventriculogram was performed in standard 30-degree CR view, reveals preserved cardiac wall motion, ejection fraction 50% to 55%. SELECTIVE CORONARY ANGIOGRAPHY: 1. Left main is with no significant angiographic disease. 2. Left anterior descending is totally occluded. 3. Left circumflex has moderate irregularities, but no flow-limiting stenosis. 4. Right coronary is totally occluded. 5. BUSTILLO to the LAD is widely patent. Distal LAD is widely patent. 6. Vein graft to the right coronary is widely patent. Distal right coronary is widely patent. OVERALL IMPRESSION: Wide patency of the left internal mammary artery to the left anterior descending, vein graft to the right coronary artery and cahto circumflex, third-degree heart block, this is not secondary to ischemia. This was resolved with temporary pacing. Evaluate for permanent pacemaker. TRANSINT:[id number] Voice Confirmation ID: [id number] DOCUMENT ID: [id number] SAURAV SENIOR MD at 1329 CC: [id number] DICTATION DATE: 06/23/18 1105 CENTRIFUGE OPERATOR: 06/23/18 1118 [place] [address]
--- NOTE | 2018-06-23 14:08 | NUR ---
0900 DR SENIOR STATED CONTINUE DOBUTREX DRIP AT 10 HE WOULD BE IN UNIT SOON.. AND HE WOULD PUT IN ORDER FOR PACEMAKER [address] LEVIN AND INFORMED OF PACEMAKER ORDER.. 0930 EXTERNAL PACEMAKER ON RATE OF 60 MA OF 10 DUE TO PT LETHARGY , JULIO VP ANCILLARY FOR CARDIOLOGY HERE AND ASSESED PATIENT 0945 DR SENIOR CALLED AND ORDER RECIEVED FOR CONSENTS FOR PATIENT TO BE SENT TO NETWORK ENGINEER ADMINISTRATOR FOR CARDIAC CATH AND TEMPORARY PACEMAKER PLACEMENT.. 1000 PERMITS SIGNED BY MJ 1020 PT TRANSPORTED TO THE NETWORK ENGINEER ADMINISTRATOR VIA BED.. 1105 REPORT RECIEVED FROM NETWORK ENGINEER ADMINISTRATOR .. CATH CLEAN AND TEMP PACER PLACED INTO LEFT GROIN, VENTICULAR PACED MA 5 , PERMNANT PACEMAKER TO BE PLACED TOMORROW, FAMILY UPDATED.. 1130 PT RETURNED TO ICU VIA BED , EASILY ROUSED, DOBUTREX OFF TEMP PACEMAKER IN LEFT GROIN DRESSING CDI RATE 70 VMA 5, PEDAL PULES CHECK WITH DOPPLER... 1145 FSBS DONE 170 AND 2 UNITS INSULIN COVER.. AT BEDSIDE 1200 PT IS SLEEPING AND FAMILY AT THE BEDSIDE.. 1230 DR LEVIN IN TO SEE PT SPOKE WITH PT AND FAMILY.. 1345 ECHO CARDIOGRAM DONE.. 1400 PT REMAINS SLEEPING WITHOUT C/O PULSES ARE WITH DOPPLER
[2018-06-23 14:12] LABS: ALKALINE PHOSPHATASE 42 U/L (46-116); ALT (SGPT) 41 U/L (10-68); BILIRUBIN - TOTAL 0.47 mg/dL (0.2-1.3); CALC OSMOLALITY 300 mosm/kg (275-300); CALCIUM 8.7 mg/dL (8.5-10.1); CARBON DIOXIDE 26.5 mmol/L (21.0-32.0); CHLORIDE - SERUM 110 mmol/L (98-107); CREATININE - SERUM 1.3 mg/dL (0.6-1.3); GLUCOSE 154 mg/dL (74-106); POTASSIUM - SERUM 5.6 mmol/L (3.5-5.1); PROTEIN - SERUM 5.6 g/dL (6.4-8.2); SODIUM 147 mmol/L (136-145); UREA NITROGEN 29 mg/dL (7-18); eGFR NON AFRICAN AMERICAN 44 mL/min (90-120)
[2018-06-23 14:28] LABS: CKMB 5.7 U/L (0.0-3.6); CREATINE KINASE 91 UL (21-215)
[2018-06-23 14:33] LABS: TROPONIN-I 0.323 ng/mL (0.000-0.060)
--- NOTE | 2018-06-23 15:46 | MORECARE ---
CASE MANAGEMENT DISCHARGE SUMMARY PATIENT: HETAL DASH UNIT: [id number] ADM DATE: 06/22/18 AGE: 57 : 56 SEX: F ROOM/BED: D.2312 AUTHOR: TEMITOPE MALIN PHYSICIAN: REFERRING PHYSICIAN: BANDAR ENRIQUEZ MD DATE OF SERVICE: 06/23/18 Discharge Plan Patient Name: HETAL DASH Facility: [facility]:[place] : 1960 Planned Disposition: Anticipated Discharge Date: Discharge Date: Expected LOS: Initial Reviewer: [email or web address] Initial Review Date: 06/22/2018 Generated: 06/23/18 4:46 pm Comments DCP- Discharge Planning Updated by [email or web address]: Love Mcgarry on 06/23/18 2:[address] CM attempted to meet with patient for intake interview but patient is currently very drowsy from procedure. CM will come back at a later time. CM will continue to follow and assist as needed with discharge planning / needs. Patient Name: HETAL DASH Page [phone] at 1546 All edits/amendments must be made on the electronic document DICTATION DATE: 06/23/181544 ELECTRIC DETECTOR OPERATOR: JOSE 06/23/181544 RPT#: [id number] DC DATE: STATUS: ADM IN [facility] [address] [place] [address] END OF REPORT
--- NOTE | 2018-06-23 18:46 | NUR ---
1600 FAMILT IN TO SEE PT.. UPDATE IS GIVEN PT IS WITHOUT C/O AT THIS TIME.. 1730 LAB IN TO DRAW UNABLE TO OBTAIN WILL SEND ANOTHER PHLEBO 1800 AT BEDSIDE.. UPDATE GIVEN AND PERMIT SIGND FOR PERM PACER INSERTION IN AM
[2018-06-23 19:21] LABS: HEMATOCRIT 38.9 % (36.0-48.0); HEMOGLOBIN 11.9 g/dL (12-16); MCH 29.5 pg (26.0-34.0); MCHC 30.6 g/dL (31.0-37.0); MCV 96.5 fL (80.0-100.0); RBC 4.03 10x6/uL (4.00-5.40); RDW 15.4 % (11.5-14.5); WBC 4.9 10x3/uL (4.8-10.8)
[2018-06-23 19:39] LABS: APTT 26.4 SECONDS (22.8-39.4); INR 1.08 (0.85-1.17); PROTIME 13.5 SECONDS (11.6-15.0)
[2018-06-24] VITALS (23 sets, daily range): BP systolic 111–158; BP diastolic 73–104
[2018-06-24 04:37] LABS: ANION GAP 11.2 mmol/L (8-16); CALCIUM 8.6 mg/dL (8.5-10.1); CARBON DIOXIDE 28.3 mmol/L (21.0-32.0); CREATININE - SERUM 1.2 mg/dL (0.6-1.3)
[2018-06-24 04:42] LABS: POTASSIUM - SERUM 4.5 mmol/L (3.5-5.1)
--- NOTE | 2018-06-24 08:26 | NUR ---
0800 AM ASSESMENT IS DONE.. SEE FLOW SHEET FOR FINDINGS.. PT IS AAWAKE AND ALERT AT THE BEDSIDE.. 0815 COMPLETE BATH WITH CHLORAHEXADINE GIVEN AND CLEAN LINENS TO BED.. 0825 ANESTHESIA HERE SPEAKING WITH PT AND FAMILY.. 0830 [facility] HERE TO TRANSPORT PT TO [facility] FOR PERM. PACEMAKER
--- NOTE | 2018-06-24 08:48 | NUR ---
0845 TRANSPORTED TO RUBBER STAMP MAKER VIA BED PER CVATH LAB STAFF.. PRE OP MEDS GIVEN ORDERED
--- NOTE | 2018-06-24 11:07 | NUR ---
PT BACK FROM TANNING WHEEL OPERATOR, PM TO LEFT UPPER CHEST, ARM IN SLING, DRSG CDI, PT LETHARGIC AT THIS TIME, AROUSES TO VOICE, ALL PPP, VSS, WILL CON'T TO MONITOR
--- NOTE | 2018-06-24 11:11 | NUR ---
RAD AT BEDSIDE, CXR COMPLETE, FAMILY ALSO AT BEDSIDE, UPDATE GIVEN
--- NOTE | 2018-06-24 11:50 | NUR ---
WAS DIRECECTED BY DR LINDSEY NURSE ELENO LAFLEUR TO DO A CXR NOW AND THEN REPEAT AN UPRIGHT CXR IN 4 HOURS.
--- NOTE | 2018-06-24 13:56 | NUR ---
1400 PT REMAINS SLEEPING AND LETHARGIC SINCE RETURNING TO ROOM FROM PROCEDURE.. AT BEDSIDE AND UPDATE RE PLAN OF CARE GIVEN
--- NOTE | 2018-06-24 14:40 | MORECARE ---
CASE MANAGEMENT DISCHARGE SUMMARY PATIENT: HETAL DASH UNIT: [id number] ADM DATE: 06/22/18 AGE: 57 : 56 SEX: F ROOM/BED: D.2312 AUTHOR: TEMITOPE MALIN PHYSICIAN: REFERRING PHYSICIAN: BANDAR ENRIQUEZ MD DATE OF SERVICE: 06/24/18 Discharge Plan Patient Name: HETAL DASH Facility: [facility]:[place] : 1960 Planned Disposition: Anticipated Discharge Date: Discharge Date: Expected LOS: Initial Reviewer: [email or web address] Initial Review Date: 06/22/2018 Generated: 06/24/18 3:40 pm Comments DCP- Discharge Planning Updated by [email or web address]: Love Mcgarry on 06/23/18 2:[address] CM attempted to meet with patient for intake interview but patient is currently very drowsy from procedure. CM will come back at a later time. CM will continue to follow and assist as needed with discharge planning / needs. Last DP export: 06/23/18 2:46 p Patient Name: HETAL DASH Page [phone] at 1440 All edits/amendments must be made on the electronic document DICTATION DATE: 06/24/18 144 NATIONAL ACCOUNTS SALES: JOSE 06/24/18 1440 RPT#: [id number] DC DATE: STATUS: ADM IN [facility] [address] [place] [address] END OF REPORT
--- NOTE | 2018-06-24 14:51 | MORECARE ---
CASE MANAGEMENT DISCHARGE SUMMARY PATIENT: HETAL DASH UNIT: [id number] ADM DATE: 06/22/18 AGE: 57 : 56 SEX: F ROOM/BED: D.2312 AUTHOR: TEMITOPE MALIN PHYSICIAN: REFERRING PHYSICIAN: BANDAR ENRIQUEZ MD DATE OF SERVICE: 06/24/18 Discharge Plan Patient Name: HETAL DASH Facility: [facility] : 1960 Planned Disposition: Anticipated Discharge Date: Discharge Date: Expected LOS: Initial Reviewer: [email or web address] Initial Review Date: 06/22/2018 Generated: 06/24/18 3:51 pm Comments DCP- Discharge Planning Updated by [email or web address]: Love Mcgarry on 06/23/18 2:[address] CM attempted to meet with patient for intake interview but patient is currently very drowsy from procedure. CM will come back at a later time. CM will continue to follow and assist as needed with discharge planning / needs. DCPIA - Discharge Planning Initial Assessment Updated by [email or web address]: Love Mcgarry on 06/24/18 2:44 pm * Is the patient Alert and Oriented? Yes * How many steps to enter\exit or inside your home? * PCP BECKY RUBI OR DR. OATES * Pharmacy [facility] * Preadmission Environment Home with Family * ADLs Partial Dependent * Partial ADLs (Assistance needed) Transfers * Equipment Elevated Toliet Seat * Other Equipment WALKER, ROLLING WALKER WITH SEAT * List name and contact numbers for known caregivers / representatives who currently or will assist patient after discharge: MJ DASH - - [phone] [facility] DACIA MOTHER [phone] * Verbal permission to speak to the caregivers and representatives has been obtained from the patient. Yes * Community resources currently utilized None * Additional services required to return to the preadmission environment? No * Can the patient safely return to the preadmission environment? Yes * Has this patient been hospitalized within the prior 30 days at any hospital? No Last DP export: 06/24/18 1:40 p Patient Name: HETAL DASH Page [id number] at 1451 All edits/amendments must be made on the electronic document DICTATION DATE: 06/24/181449 BOATBUILDER SUPERVISOR: JOSE 06/24/181449 RPT#: [id number] DC DATE: STATUS: ADM IN [facility] [address] [place] [address] END OF REPORT
--- NOTE | 2018-06-24 15:02 | MORECARE ---
CASE MANAGEMENT DISCHARGE SUMMARY PATIENT: HETAL DASH UNIT: [id number] ADM DATE: 06/22/18 AGE: 57 : 56 SEX: F ROOM/BED: D.2312 AUTHOR: DEA,DOC PHYSICIAN: REFERRING PHYSICIAN: BANDAR ENRIQUEZ MD DATE OF SERVICE: 06/24/18 Discharge Plan Patient Name: HETAL DASH Facility: [facility]:[place] : 1960 Planned Disposition: Anticipated Discharge Date: Discharge Date: Expected LOS: Initial Reviewer: [email or web address] Initial Review Date: 06/22/2018 Generated: 06/24/18 4:02 pm Comments DCP- Discharge Planning Updated by [email or web address]: Love Mcgarry on 06/24/18 1:[address] Patient Name: HETAL DASH Admission Status: ER Accout number: [id number] Admission Date: 06-22-2018 : 1960 Admission Diagnosis: Attending: BANDAR ENRIQUEZ Current LOS: 2 Anticipated DC Date: Planned Disposition: Primary Insurance: [place] PRIVATE OPTIONS FELIBERTO Discharge Planning Comments: CM met with patient and (Igor) at bedside. Patient states she lives at home with her and plans on returning back to her home upon discharge. states that she was needing to get some physical therapy rehab. He states that she has MS and had gotten so weak that she couldn't get up without assistance. CM will check to see if physical therapy can eval patient while she inpatient. CM will continue to monitor and assist as needed with discharge planning / needs. Train System Operator: Love Mcgarry DCP- Discharge Planning Updated by [id number]: Love Mcgarry on 06/23/18 2:[address] CM attempted to meet with patient for intake interview but patient is currently very drowsy from procedure. CM will come back at a later time. CM will continue to follow and assist as needed with discharge planning / needs. DCPIA - Discharge Planning Initial Assessment Updated by [email or web address]: Love Mcgarry on 06/24/18 2:44 pm * Is the patient Alert and Oriented? Yes * How many steps to enter\exit or inside your home? * PCP BECKY RUBI OR DR. OATES * Pharmacy [facility] * Preadmission Environment Home with Family * ADLs Partial Dependent * Partial ADLs (Assistance needed) Transfers * Equipment Elevated Toliet Seat * Other Equipment WALKER, ROLLING WALKER WITH SEAT * List name and contact numbers for known caregivers / representatives who currently or will assist patient after discharge: IGOR DASH - - [phone] STANLEY PEDERSON - MOTHER- [phone] * Verbal permission to speak to the caregivers and representatives has been obtained from the patient. Yes * Community resources currently utilized None * Additional services required to return to the preadmission environment? No * Can the patient safely return to the preadmission environment? Yes * Has this patient been hospitalized within the prior 30 days at any hospital? No Last DP export: 06/24/18 1:51 p Patient Name: HETAL DASH Page [phone] at 1502 All edits/amendments must be made on the electronic document DICTATION DATE: 06/24/18 1501 BIG DATA SOFTWARE ENGINEER: JOSE 06/24/18 1501 RPT#: [id number] DC DATE: STATUS: ADM IN [facility] [address] [place] [address] END OF REPORT
--- NOTE | 2018-06-24 16:33 | NUR ---
1630 FSBS DONE INSULIN GIVEN
--- NOTE | 2018-06-24 16:39 | EC ---
PATIENT:HETAL DASH DATE OF SERVICE: 06/22/18 SEX: F MEDICAL RECORD: [id number] DATE OF : 56 LOCATION:[facility] AGE OF PATIENT: 57 ADMISSION DATE: 06/22/18 REFERRING PHYSICIAN: INTERPRETING PHYSICIAN: SAURAV SENIOR MD ECHOCARDIOGRAM REPORT ECHO CHARGES 4 ECHO COMPLETE Date: 06/23/18 CLINICAL DIAGNOSIS: HEART BLOCK ECHOCARDIOGRAPHIC MEASUREMENTS (adult normal given) AC root (d.<3.7cm) 2.9 cm LV Septum d (<1.2 cm> 1.2 cm Valve Excursion 1.1 cm LV Septum (systole) 1.4 cm Left Atria (s.<4.0cm> 3.6 cm LVPW d(<1.2cm) 1.4 cm RV (d.<2.3cm) 3.7 cm LVPW (sytole) 1.6 cm LV diastole(<5.6CM) 4.5 cm MV E-F(>70mm/sec) cm LV systole 2.7 cm LVOT Diameter 1.4 cm MV exc.(>10mm) 1.3 cm Est.ejection fraction (50-75%) % DOPPLER: LVIT cm/sec A 4.5 cm/sec E 71.0 cm/sec LA cm/sec RVSP 31 mmHg LVOT 106 cm/sec AOP1/2T m/s Asc. Ao 196 cm/sec RVOT 128 cm/sec RA cm/sec PA 168 cm/sec AV Gradient Peak 15.34mmHg AV Mean 9.03 mmHg AV Area 1.7 cm MV Gradient Peak 6.76 mmHg MV Mean 2.17 mmHg MV Area cm COMMENTS: Pattern Keeper: Antonio ESPINOZA Hand Ornament Maker: 2 Dr. Sotelo TAPE# PACS Pericardial Effusion N DATE OF SERVICE: 06/23/2018 FINDINGS: 1. Left ventricular chamber size is within normal limits. Left ventricular systolic function is normal. Overall ejection fraction is estimated at 60%. 2. Left atrium, right atrium, and right ventricular chamber sizes are within normal limit. 3. Valvular structures have normal structure and motion. 4. Doppler interrogation reveals mild tricuspid regurgitation. No other valvular insufficiency or stenosis. Pulmonary systolic pressure is estimated at ECHOCARDIOGRAM REPORT [id number] HETAL DASH 31 mmHg. 5. No evidence of pericardial effusion or left ventricular thrombus. TRANSINT:[id number] Voice Confirmation ID: [id number] DOCUMENT ID: [id number] ASURAV SENIOR MD at 1639 CC: [id number] DICTATION DATE: 06/23/18 1614 CYBER SECURITY: 06/23/18 1759 ADM IN [facility] [address] [place] [address]
--- NOTE | 2018-06-24 17:53 | NUR ---
FAMILY AT BEDSIDE. GIVEN UDPATE. DINNER TRAY ORDERED AWAITING ARRIVAL. DENIES FURTHER NEEDS. WILL CONTINUE TO MONITOR
[2018-06-25] VITALS (12 sets, daily range): BP systolic 118–175; BP diastolic 76–105
--- NOTE | 2018-06-25 01:20 | NUR ---
PT CONFUSED AND DISORIENTED. UNABLE TO REORIENT. CAME IN FROM WAITING ROOM AND HELPING WITH HER.
[2018-06-25 05:27] LABS: CALCIUM 8.1 mg/dL (8.5-10.1); CARBON DIOXIDE 28.2 mmol/L (21.0-32.0); CHLORIDE - SERUM 111 mmol/L (98-107); GLUCOSE 145 mg/dL (74-106); POTASSIUM - SERUM 4.2 mmol/L (3.5-5.1); SODIUM 144 mmol/L (136-145); eGFR NON AFRICAN AMERICAN 78 mL/min (90-120)
[2018-06-25 05:29] LABS: CALC OSMOLALITY 291 mosm/kg (275-300); CREATININE - SERUM 0.8 mg/dL (0.6-1.3); UREA NITROGEN 17 mg/dL (7-18)
--- NOTE | 2018-06-25 07:41 | NUR ---
Rehab Note- Acute Inpatient Prescreen order received. The patient has [employer] Private Options insurance and cannot be admitted to [facility] Acute Inpatient Rehab. Will notify AURORA Aleman. Thank you for this referral! Poonam Freitas RN Clinical Liaison, [facility] Rehab
--- NOTE | 2018-06-25 09:45 | NUR ---
NUTRITION F/U SPOUSE AT BEDSIDE. NURSING REPORTS PT TOLERATING AHA DIET WITH MODEST PO AT BREAKFAST. WILL CONTINUE TO PROVIDE DIET, MONITOR INTAKE. NOTE PT TO TX TO FLOOR. RD FOLLOWING
--- NOTE | 2018-06-25 11:01 | NUR ---
0800 AM ASSESMENT COMLETE SEE FLOW SHEET FOR FINDINGS BREAKFAST IS SERVED AND IS ASSISTING PT WITH MEAL 0830 GLADYS XAVIER IN TO INTEROGATE PACEMAKER 0845 DR SENIOR IN TO SEE PT UPDATE GIVEN ORDER TO TRANSFER TO FLOOR RECIEVED.. 0900 SLEEPING AT THIS TIME.. SPOKE WITH ML LAFLEUR FOR DR LEVIN RE TRANSFER PT.. [address] LEVIN FOR TRANSFER.. 1030 COMPLETE BATH AND LINEN CHANGE GIVEN PIV REPORT CALLED TO ANDRES LAFLEUR FOR RM 2121 ON THE FLOOR 1040 TRANSPORTED TO ROOM 2121 VIA BED AND TRANSFERED TO FLOOR BED ONCE IN ROOM.. REPORT TO ANDRES LAFLEUR..
--- NOTE | 2018-06-25 11:02 | NUR ---
RECIEVED FROM ICU. SLEEPING BUT AWAKENS EASILY. V/S STABLE. SLING TO LEFT ARM, PACER SITE WITH DRSG DRY AND INTACT. MORAN CATH PATENT TO GRAVITY BAG. FAMILY AT BEDSIDE. WILL MONITOR. SR UP WITH CALLLIGHT IN REACH AND SR UP
--- NOTE | 2018-06-25 12:22 | MORECARE ---
CASE MANAGEMENT DISCHARGE SUMMARY PATIENT: HETAL DASH UNIT: [id number] ADM DATE: 06/22/18 AGE: 57 : 56 SEX: F ROOM/BED: D.3473 AUTHOR: DEA,DOC PHYSICIAN: REFERRING PHYSICIAN: BANDAR ENRIQUEZ MD DATE OF SERVICE: 06/25/18 Discharge Plan Patient Name: HETAL DASH Facility: [facility]:[place] : 1960 Planned Disposition: Anticipated Discharge Date: Discharge Date: Expected LOS: Initial Reviewer: [email or web address] Initial Review Date: 06/22/2018 Generated: 06/25/18 1:22 pm Comments DCP- Discharge Planning Updated by [email or web address]: Love Mcgarry on 06/25/18 11:[address] CM received notice from Poonam this am from Inpatient Rehab that patients insurance is not accepted at [facility] rehab. CM will continue to follow and assist as needed with discharge planning / needs DCP- Discharge Planning Updated by [email or web address]: Love Mcgarry on 06/24/18 1:[address] Patient Name: HETAL DASH Admission Status: ER Accout number: [id number] Admission Date: 06-22-2018 : 1960 Admission Diagnosis: Attending: BANDAR ENRIQUEZ Current LOS: 2 Anticipated DC Date: Planned Disposition: Primary Insurance: [place] PRIVATE OPTIONS [place]ELIBERTO Discharge Planning Comments: CM met with patient and (Igor) at bedside. Patient states she lives at home with her and plans on returning back to her home upon discharge. states that she was needing to get some physical therapy rehab. He states that she has MS and had gotten so weak that she couldn't get up without assistance. CM will check to see if physical therapy can eval patient while she inpatient. CM will continue to monitor and assist as needed with discharge planning / needs. Label Pinker: Love Mcgarry DCP- Discharge Planning Updated by [email or web address]: Love Mcgarry on 06/23/18 2:[address] CM attempted to meet with patient for intake interview but patient is currently very drowsy from procedure. CM will come back at a later time. CM will continue to follow and assist as needed with discharge planning / needs. DCPIA - Discharge Planning Initial Assessment Updated by [email or web address]: Love Mcgarry on 06/24/18 2:44 pm * Is the patient Alert and Oriented? Yes * How many steps to enter\exit or inside your home? * PCP BECKY RUBI OR DR. OATES * Pharmacy [facility] * Preadmission Environment Home with Family * ADLs Partial Dependent * Partial ADLs (Assistance needed) Transfers * Equipment Elevated Toliet Seat * Other Equipment WALKER, ROLLING WALKER WITH SEAT * List name and contact numbers for known caregivers / representatives who currently or will assist patient after discharge: IGOR DASH - - [phone] [facility] DACIA MOTHER [phone] * Verbal permission to speak to the caregivers and representatives has been obtained from the patient. Yes * Community resources currently utilized None * Additional services required to return to the preadmission environment? No * Can the patient safely return to the preadmission environment? Yes * Has this patient been hospitalized within the prior 30 days at any hospital? No Last DP export: 06/24/18 2:02 p Patient Name: HETAL DASH Page [id number] at 1222 All edits/amendments must be made on the electronic document DICTATION DATE: 06/25/181221 PATIENT EDUCATOR: JOSE 06/25/181221 RPT#: [id number] DC DATE: STATUS: ADM IN [facility] [address] [place] [address] END OF REPORT
--- NOTE | 2018-06-25 14:10 | NUR ---
OT NOTE: ATTEMPTED EVAL, HOWEVER, PT EXTREMELY LETHARGIC. ABLE TO OPEN EYES TO TACTILE CUES, BUT UNABLE TO STAY AWAKE OR VERBALLY RESPOND. WILL ATTEMPT TOMORROW. CRISTOBAL GO, OTR/L
--- NOTE | 2018-06-25 16:01 | OP ---
PATIENT NAME: HETAL DASH MEDICAL RECORD: [id number] :[birth year] LOCATION:D. D.2121 ADMISSION DATE:06/22/18 SURGEON: DEANDRE LEVIN MD DATE OF OPERATION: 06/24/2018 SURGEON: Deandre Levin MD THEATER USHER: Ric Rodriguez MD PROCEDURE PERFORMED: Insertion of dual chamber permanent pacemaker. INDICATION: Complete heart block. ANESTHESIA: Monitored anesthesia care and intravenous sedation. SPECIMENS: None. CONDITION: Stable. DISPOSITION: ICU. OPERATIVE FINDINGS: Good pacing and sensing thresholds. The temporary lead removed. INDICATION: Heart block. DESCRIPTION OF PROCEDURE: The patient was brought to the laborer salvage suite, sterilely preped and draped, left anterior chest, was anesthetized with 1% Xylocaine. A subcutaneous pocket was created, subclavian vein was cannulated. Air was withdrawn on two needle insertions after the guidewire was passed under fluoroscopic control, was dilated with 9-Serbian system. Dario wire technique was used. Both leads were placed. Then, under fluoroscopy, the ventricular lead was placed, screwed in place, interrogated, and the suture sleeve was tied down. The atrial lead was formed into a J-shape and attached with good pacing and sensing thresholds. It was also attached with a suture sleeve. The temporary pacing wire was removed. The ventricular and atrial leads were attached to the pacemaker generator. The pocket was irrigated and made hemostatic. Generator was coiled into the pocket with a suture to tack down the generator, again thorough irrigation. Hemostasis was ensured. The wound was closed in 3 layers and Dermabond on the skin. The patient was hemodynamically stable. TRANSINT:[id number] Voice Confirmation ID: [id number] DOCUMENT ID: [id number] DEANDRE LEVIN MD at 1601 CC: SAURAV SENIOR [id number] DICTATION DATE: 06/24/18 1602 WHISKEY PROOF READER: 06/24/188 ADM IN [place] [id number] [place] [id number]
[2018-06-26] VITALS: BP 148/70
[2018-06-26 04:00] VITALS: BP 138/83
[2018-06-26 06:28] LABS: ANION GAP 11.3 mmol/L (8-16); CALCIUM 8.7 mg/dL (8.5-10.1); CREATININE - SERUM 0.9 mg/dL (0.6-1.3); POTASSIUM - SERUM 4.3 mmol/L (3.5-5.1)
--- NOTE | 2018-06-26 07:58 | NUR ---
ALERT AND ORIENTED. NO NEEDS VOICED. TELEMERTY SHOWS SR. FAMILY AT BEDSIDE. PACER TO LEFT CHEST WITH SING IN PLACE. SR UP WITH CALL LIGHT IN REACH
[2018-06-26 08:55] VITALS: BP 148/82
--- NOTE | 2018-06-26 10:08 | NUR ---
RESP UL ON . LEFT CHEST DRSG CDI. LEFT ARM IN SLING. CALL LIGHT IN REACH. MORAN INTACT. FAMILY AT BS. WILL CONT. PLAN OF CARE.
[2018-06-26 12:42] VITALS: BP 149/77
--- NOTE | 2018-06-26 13:11 | MORECARE ---
CASE MANAGEMENT DISCHARGE SUMMARY PATIENT: HETAL DASH UNIT: [id number] ADM DATE: 06/22/18 AGE: 57 : 56 SEX: F ROOM/BED: D.8059 AUTHOR: DEA,DOC PHYSICIAN: REFERRING PHYSICIAN: BANDAR ENRIQUEZ MD DATE OF SERVICE: 06/26/18 Discharge Plan Patient Name: HETAL DASH Facility: [facility]:[place] : 1960 Planned Disposition: Outpatient PT\OT Anticipated Discharge Date: 06/26/18 Discharge Date: Expected LOS: 4 Initial Reviewer: [email or web address] Initial Review Date: 06/22/2018 Generated: 06/26/18 2:11 pm Comments DCP- Discharge Planning Updated by [email or web address]: Love Mcgarry on 06/25/18 11:[address] CM received notice from P[facility] this am from Inpatient Rehab that patients insurance is not accepted at [facility] rehab. CM will continue to follow and assist as needed with discharge planning / needs DCP- Discharge Planning Updated by [email or web address]: Love Mcgarry on 06/24/18 1:[address] Patient Name: HETAL DASH Admission Status: ER Accout number: [id number] Admission Date: 06-22-2018 : 1960 Admission Diagnosis: Attending: BANDAR ENRIQUEZ Current LOS: 2 Anticipated DC Date: Planned Disposition: Primary Insurance: [place] [employer] [place] Discharge Planning Comments: CM met with patient and (Igor) at bedside. Patient states she lives at home with her and plans on returning back to her home upon discharge. states that she was needing to get some physical therapy rehab. He states that she has MS and had gotten so weak that she couldn't get up without assistance. CM will check to see if physical therapy can eval patient while she inpatient. CM will continue to monitor and assist as needed with discharge planning / needs. Research Environmental Scientist: Love Mcgarry DCP- Discharge Planning Updated by [email or web address]: Love Mcgarry on 06/23/18 2:[address] CM attempted to meet with patient for intake interview but patient is currently very drowsy from procedure. CM will come back at a later time. CM will continue to follow and assist as needed with discharge planning / needs. DCPIA - Discharge Planning Initial Assessment Updated by [email or web address]: Love Mcgarry on 06/24/18 2:44 pm * Is the patient Alert and Oriented? Yes * How many steps to enter\exit or inside your home? * PCP BECKY RUBI OR DR. OATES * Pharmacy [facility] * Preadmission Environment Home with Family * ADLs Partial Dependent * Partial ADLs (Assistance needed) Transfers * Equipment Elevated [place] Seat * Other Equipment WALKER, ROLLING WALKER WITH SEAT * List name and contact numbers for known caregivers / representatives who currently or will assist patient after discharge: IGOR DASH - - [phone] PAT DACIA - MOTHER- [phone] * Verbal permission to speak to the caregivers and representatives has been obtained from the patient. Yes * Community resources currently utilized None * Additional services required to return to the preadmission environment? No * Can the patient safely return to the preadmission environment? Yes * Has this patient been hospitalized within the prior 30 days at any hospital? No External Providers External Provider: OTHER-OTHER Next Contact Date: 06/26/2018 Service Request Date: Service Type: Resolution: Reviewer: Comments: Last DP export: 06/25/18 11:22 a Patient Name: HETAL DASH Page 88089 at 1311 All edits/amendments must be made on the electronic document DICTATION DATE: 06/26/18 1311 PROCUREMENT SPECIALIST: JOSE 06/26/18 1311 RPT#: [id number] DC DATE: STATUS: ADM IN [facility] [address] [place] [address] END OF REPORT
--- NOTE | 2018-06-26 13:27 | MORECARE ---
CASE MANAGEMENT DISCHARGE SUMMARY PATIENT: HETAL DASH UNIT: [id number] ADM DATE: 06/22/18 AGE: 57 : 56 SEX: F ROOM/BED: D.2896 AUTHOR: DEA,DOC PHYSICIAN: REFERRING PHYSICIAN: BANDAR ENRIQUEZ MD DATE OF SERVICE: 06/26/18 Discharge Plan Patient Name: HETAL DASH Facility: [facility]:[place] : 1960 Planned Disposition: Outpatient PT\OT Anticipated Discharge Date: 06/26/18 Discharge Date: Expected LOS: 4 Initial Reviewer: [email or web address] Initial Review Date: 06/22/2018 Generated: 06/26/18 2:27 pm Comments DCP- Discharge Planning Updated by [email or web address]: Phong Ledesma on 06/26/18 12:[address] Patient Name: HETAL DASH Encounter No: [id number] : 1960 Primary Insurance: [employer] [place] [employer] [place] Anticipated DC Date: 06-26-2018 Planned Disposition: Outpatient PT\OT External Planned Provider: [facility] [place] DCP follow-up note: CM MET WITH PT AND MOTHER IN ROOM TO DISCUSS DISCHARGE PLANNING AND NEEDS. HETAL DASH provided verbal consent to discuss current and ongoing needs with/in the presence of: HER MOTHER, STANLEY PEDERSON AND PT'S SPOUSE IGOR DASH. PT REPORTS SHE NEEDS THERPY BUT NEEDS CM TO TALK TO HER WHO IS AN MOLD CUTTING MACHINE OPERATOR AND KNOWS WHERE THEY WANT PT TO HAVE THERAPY AT. PT'S SPOUSE TO BE TO HOSPTIAL SHORTLY TO MEDICAL SECRETARY PT FOR DISCHARGE HOME TODAY. CM LATER RECEIVED MESSAGE FROM BEDSIDE NURSE THAT PT'S SPOUSE IS HERE TO SPEAK TO CM . CM MET WITH PT, PT'S SPOUSE AND PT'S MOTHER IN ROOM. CM DISCUSSED REHAB SERVICES AVAILABLITY. PT'S SPOUSE REPORTS HE IS TAKING PT HOME TODAY AND THAT THEY WANT REHAB SET UP AT [facility] OR [facility] AN OUTPATIENT. PT'S SPOUSE DENIES FURHTER NEEDS. PT'S SPOUSE WOULD LIKE TO BE DISCHARGED SOON [place] TODAY. PT'S SPOUSE REPORTS PREFERENCE FOR [facility] PT HAS THERAPY THERE IN THE PAST WITH [facility] [employer] AND INSURANCE COVERS IT. CM NOTIFIED BEDSIDE NURSE. CM NOTIFIED NAIMA ANDREWS WHO INFORMED CM THAT DISCHARGE HAS BEEN ENTERED TODAY. CM CALLED [facility], , SPOKE TO JENNY WHO INFORMED CM THAT PT NEEDS ORDER FOR OUTPATIENT THERAPY AND DEMOGRAPHICS SHEET FAXED TO [facility] AND THEY WILL CALL AND SCHEDULE FIRST APPOINTMENT WITH THEM. ; JENNY REPORTS ANY THERAPY EVALUATONS AND HISTORY & PHYSICCAL WOULD ALSO BE HELPFUL IN TREATMENT PLANNING. CM FAXED OUTPATIENT THERAPY REFERRAL INFORMATION TO [facility] [place] AT [phone]. NO FURTHER DISCHARGE NEEDS IDENTIFIED. PHONG LEDESMA, CASE MANAGEMENT DCP- Discharge Planning Updated by [id number]: Love Mcgarry on 06/25/18 11:[address] CM received notice from Poon[facility] this am from Inpatient Rehab that patients insurance is not accepted at [facility] rehab. CM will continue to follow and assist as needed with discharge planning / needs DCP- Discharge Planning Updated by [email or web address]: Love Mcgarry on 06/24/18 1:[address] Patient Name: HETAL DASH Admission Status: ER Accout number: [id number] Admission Date: 06-22-2018 : 1960 Admission Diagnosis: Attending: BANDAR ENRIQUEZ Current LOS: 2 Anticipated DC Date: Planned Disposition: Primary Insurance: [place] PR[employer] [facility] Discharge Planning Comments: CM met with patient and (Igor) at bedside. Patient states she lives at home with her and plans on returning back to her home upon discharge. states that she was needing to get some physical therapy rehab. He states that she has MS and had gotten so weak that she couldn't get up without assistance. CM will check to see if physical therapy can eval patient while she inpatient. CM will continue to monitor and assist as needed with discharge planning / needs. Search Engine Marketing Manager: Love Mcgarry DCP- Discharge Planning Updated by [email or web address]: Love Mcgarry on 06/23/18 2:[address] CM attempted to meet with patient for intake interview but patient is currently very drowsy from procedure. CM will come back at a later time. CM will continue to follow and assist as needed with discharge planning / needs. DCPIA - Discharge Planning Initial Assessment Updated by [email or web address]: Love Mcgarry on 1/16/19 2:44 pm * Is the patient Alert and Oriented? Yes * How many steps to enter\exit or inside your home? * PCP BECKY RUBI OR DR. OATES * Pharmacy [facility] * Preadmission Environment Home with Family * ADLs Partial Dependent * Partial ADLs (Assistance needed) Transfers * Equipment Elevated [place] Seat * Other Equipment WALKER, ROLLING WALKER WITH SEAT * List name and contact numbers for known caregivers / representatives who currently or will assist patient after discharge: IGOR DASH - - [phone] [facility] DACIA - MOTHER- [phone] * Verbal permission to speak to the caregivers and representatives has been obtained from the patient. Yes * Community resources currently utilized None * Additional services required to return to the preadmission environment? No * Can the patient safely return to the preadmission environment? Yes * Has this patient been hospitalized within the prior 30 days at any hospital? No Last DP export: 06/26/18 12:11 p Patient Name: HETAL DASH Page [id number] at 1327 All edits/amendments must be made on the electronic document DICTATION DATE: 06/26/18 1326 CITRUS PICKER: JOSE 06/26/18 1326 RPT#: [id number] DC DATE: STATUS: ADM IN [facility] [address] [place] [address] END OF REPORT
--- NOTE | 2018-06-26 13:38 | NUR ---
DEAN LEA. GETTING READY TO GO HOME. FAMILY AT BED SIDE. WILL MONITOR
--- NOTE | 2018-06-26 14:12 | NUR ---
DISCHARGE INSTRUCTIONS GIVEN TO PT AND FAMILY. TO PRIVATE CAR PER WHEELCHAIR.
== END 2018-06-26 14:15 | disposition home or self-care (01) | DRG 242 ==
LOC: D.ER 17:42 → D.ICU 19:19 → D.EDHOLD 19:19 → D.M2 19:49 → D.ICU 22:59 → D.EDHOLD 23:09 → D.ICU 23:24 → D.M2 06-25 10:50 → D.SDCHOLD 06-25 14:23 → D.M2 06-25 14:25
PROVIDERS: Family Medicine; Thoracic Surgery (Cardiothoracic Vascular Surgery); ADMIT Internal Medicine Nephrology
PROC: 5A1223Z Performance of Cardiac Pacing, Continuous (ICD-10-PCS; 2018-06-23)
PROC: B2130ZZ Fluoroscopy of Multiple Coronary Artery Bypass Grafts using High Osmolar Contrast (ICD-10-PCS; 2018-06-23)
PROC: B2180ZZ Fluoroscopy of Left Internal Mammary Bypass Graft using High Osmolar Contrast (ICD-10-PCS; 2018-06-23)
PROC: B2110ZZ Fluoroscopy of Multiple Coronary Arteries using High Osmolar Contrast (ICD-10-PCS; 2018-06-23)
PROC: B2150ZZ Fluoroscopy of Left Heart using High Osmolar Contrast (ICD-10-PCS; 2018-06-23)
PROC: 4A023N7 Measurement of Cardiac Sampling and Pressure, Left Heart, Percutaneous Approach (ICD-10-PCS; 2018-06-23)
PROC: 02H63JZ Insertion of Pacemaker Lead into Right Atrium, Percutaneous Approach (ICD-10-PCS; 2018-06-24)
PROC: 02HK3JZ Insertion of Pacemaker Lead into Right Ventricle, Percutaneous Approach (ICD-10-PCS; 2018-06-24)
PROC: 0JH606Z Insertion of Pacemaker, Dual Chamber into Chest Subcutaneous Tissue and Fascia, Open Approach (ICD-10-PCS; principal; 2018-06-24 08:20)
DX: I44.2 Atrioventricular block, complete (principal); J96.01 Acute respiratory failure with hypoxia; G93.41 Metabolic encephalopathy; N17.9 Acute kidney failure, unspecified; I25.119 Atherosclerotic heart disease of native coronary artery with unspecified angina pectoris; G71.11 Myotonic muscular dystrophy; I10 Essential (primary) hypertension; E11.9 Type 2 diabetes mellitus without complications